=== PATIENT | female | born 1980 | race Native Hawaiian/Other Pacific Islander ===

== ENCOUNTER 2021-09-27 09:12 | Emergency (ER) | payer SELFPAY ==
[2021-09-27] MEDS ORDERED: CYCLOBENZAPRINE 10 MG TAB PO ONE (11:00)
[2021-09-27] MEDS ORDERED: IBUPROFEN 800 MG TAB PO ONE (11:00)
[2021-09-27] MEDS ORDERED: HYDROcodone/ACETAMINOPHEN 10-325MG TAB PO ONE (11:00)
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
[2021-09-27 12:18] VITALS: BP 130/76
== END 2021-09-27 12:22 | disposition home or self-care (01) ==
LOC: ED 09:12
DX: M79.18 Myalgia, other site (principal); V89.2XXA Person injured in unspecified motor-vehicle accident, traffic, initial encounter; Y93.89 Activity, other specified; Y92.89 Other specified places as the place of occurrence of the external cause; Y99.8 Other external cause status
CPT/HCPCS: 72040; 99283